=== PATIENT | female | born 1970 | race Caucasian/White ===

== ENCOUNTER 2019-02-13 00:55 | Emergency (ER) | payer SELFPAY ==
[2019-02-13] MEDS ORDERED: ASPIRIN 81 MG CHEW TAB ONE (01:11)
[2019-02-13] MEDS ORDERED: methylPREDNISolone SOD SUCC 125 MG/2 ML VIAL ONE (01:11)
[2019-02-13] MEDS ORDERED: IPRATROPIUM/ALBUTEROL SULFATE 3 ML AMPUL.NEB NEB ONE (01:11)
[2019-02-20 09:24] LABS: eGFR (Non-African) > 60
[2019-02-20 09:25] LABS: NEUTROPHILS # 5.6 # k/uL (1.4-7.7)
--- NOTE | 2019-04-11 09:25 | Diagnostic Imaging Report ---
SELINA BECERRIL [facility] [id number] [facility] [address] [place], [place]. [address] Report Submission Date: Feb 13, 2019 1:55:17 AM CDT Patient Study Name: ARMIN PANIAGUA Date: Feb 13, 2019 1:34:03 AM CDT Modality Type: DX Gender: F Description: CHEST 1VIEW : 66 Institution: [facility] Physician: SELINA BECERRIL Ap portable upright radiographs of the chest Clinical history: Shortness of breath Technique: anterior /posterior portable upright Findings: The lung walters are clear. The heart and mediastinal structures are normal. The bony thorax is unremarkable. No pneumothorax or pleural effusion is seen. Impression: No acute pulmonary disease Electronically signed on Feb 13, 2019 1:55:17 AM CDT by: Zeeshan JOSÉ
--- NOTE | 2019-04-11 09:26 | Diagnostic Imaging Report ---
SELINA BECERRIL [facility] [id number] [facility] [place], [place]. [address] Report Submission Date: Feb 13, 2019 4:05:21 AM CDT Patient Study Name: ARMIN PANIAGUA Date: Feb 13, 2019 3:18:03 AM CDT Modality Type: CT\SR Gender: F Description: CT CHEST/ABD/PEL W : 66 Institution: [facility] Physician: SELINA BECERRIL CT of the chest, abdomen and pelvis with contrast Clinical history: Left upper quadrant abdominal pain. Shortness of breath. Contrast administered: 93 mL of Omnipaque. Technique: CT of the chest, abdomen and pelvis is performed with intravenous infusion of contrast. Sagittal and coronal reconstructions were performed by the technologist. Findings: Visualized lung bases are clear. Vascular structures enhance normally. There is no mediastinal or hilar mass or significant adenopathy. Liver is diffusely hypodense consistent with hepatic steatosis. Gallbladder is surgically absent. There is no focal abnormality in the spleen. There is no pancreatic or adrenal abnormality. There is mild distention of the common bile duct which is felt to be related to the patient's prior surgery. Right kidney is unremarkable. There is an area of diminished enhancement in the upper pole the left kidney possibly related to ischemic event. There is no stranding in the perinephric fat. Left kidney is otherwise unremarkable. Vascular calcification is present in the abdominal aorta without evidence of aneurysm. There is no retroperitoneal mass or significant adenopathy. Bladder is unremarkable. Uterus is surgically absent. There is no free fluid in the pelvis or abdomen. There are apparent postoperative changes in right lower quadrant with stranding in the fat overlying the abdominal musculature. There is a fluid collection intraperitoneal at the site of stranding in the subcutaneous fat possibly related to seroma. This measures approximately 1 x 6 x 5 cm in size. The structures related to gastrointestinal tract are unremarkable. The appendix is not identified. Impression: 1. Hepatic steatosis. 2. Area of diminished enhancement upper pole left kidney likely related to ischemic event. 3. Postoperative changes right lower quadrant with small fluid collection superficial to the colon. 4. Postoperative changes with prior fusion from L4 through S1. Electronically signed on Feb 13, 2019 4:05:21 AM CDT by: Garrick JOSÉ
== END 2019-02-13 07:01 ==
LOC: ED 00:55
DX: R06.09 Other forms of dyspnea (principal)
CPT/HCPCS: 71020; 71260; 74177; 80053; 83880; 84484; 85025; 85379; 93005; 94640; 99282; 99283; J2930; 71045; Q9967; S1016